=== PATIENT | female | born 1985 | race Caucasian/White ===

== ENCOUNTER 2020-07-08 07:38 | Inpatient (IN) ==
[2020-07-08] MEDS ORDERED: INSULIN REGULAR 250 UNITS in SODIUM CHLORIDE 0.9% 247.5 ML IV PRN (07:53)
[2020-07-08] MEDS ORDERED: LACTATED RINGER'S 1,000 ML IV PRN (07:53)
[2020-07-08] MEDS ORDERED: DEXTROSE 50% 50 ML SYRINGE IV PRN (07:53)
[2020-07-08] MEDS ORDERED: OXYTOCIN 30 UNITS/500 ML BAG IV PRN ×2 (07:53→20:51)
[2020-07-08] MEDS ORDERED: SODIUM CHLORIDE 0.9% 1000ML 1,000 ML IV PRN (07:53)
[2020-07-08] MEDS ORDERED: DINOPROSTONE 10 MG INSERT PV ONE (07:53)
[2020-07-08] MEDS ORDERED: DEXTROSE 5% 1,000 ML IV PRN (07:53)
--- NOTE | 2020-07-08 08:50 | History & Physical Report ---
Date of Service July 08, 2020 Assessment & Plan (1) Gestational diabetes mellitus (GDM) requiring insulin: 35-year-old -0-0-1 at 39 weeks of gestation with gestational diabetes on 32 units of insulin. Scheduled induction at term. Vital signs stable afebrile heart rate reassuring GBS negative Coronavirus testing negative Cervix unfavorable, discussed induction of labor with cervical ripening, Cervidil, Cytotec or oxytocin. Discussed ambulation during induction of labor After long discussion patient agrees with cervical ripening with Cervidil All questions were answered. (2) Elective induction of labor planned: Admission and Anticipated Discharge Date Admission Date: July 08, 2020 History of Present Illness Chief Complaint: Induction of labor Primary Care Provider: NO PCP Patient is a 35 yo at 39 wks who is was scheduled for IOL at term for GDMA2, on insulin. Patient has no complaints. She denies contractions, leakage of fluid, vaginal bleeding, fever chills, chest pain shortness of breath, headaches change in her vision, nausea or vomiting. She reports good movements. She has been on 32 units of long-acting insulin at night, started at 16 weeks at 10 units and increase throughout this . Her fingerstick was 74 mg/dL this morning. GBS is negative. Coronavirus testing is negative. Denies any other medical problems. Allergies Allergy/AdvReac Type Severity Reaction Status Date / Time Sulfa (Sulfonamide Allergy Unknown ? Verified 06/30/16 18:26 Antibiotics) Avelar Pepper Allergy Mild ANAPHYLAXIS Uncoded 06/30/16 18:26 Home Medications Medication Instructions Recorded Confirmed Type Docosahexaenoic Acid (Dha) #0 06/29/16 History Multivit/Min/Iron/Fol Ac/Pren 1 tab PO DAILY #0 tab 06/29/16 History ( Vitamin) Ibuprofen 600 mg PO Q4H PRN #30 tab 07/01/16 Rx Patient History Surgical History [place] teeth extracted Social History Smoking Status: Never smoker Hx Alcohol Use: No Hx Substance Use: No Preferred Language: [place]ralt[place] Beliefs That Will Affect Care: None marital status: Current Living Situation: Family Other Information That Helps Us Care for You: No Feels Safe at Home: Yes Safety Concerns: Feels Safe At This Time Assistive Devices: None OB History 2016, full-term spontaneous vaginal delivery of a 8 pound 6 ounce female , no complications. [employer] History Denies any history of STD, including herpes, chlamydia, gonorrhea. Review of Systems All systems reviewed & are unremarkable except as noted in HPI & below Physical Exam Constitutional: WD/WN, vitals as above well developed and well nourished Gastrointestinal (Abdomen): normal bowel sounds, soft, nontender, no hepatosplenomegaly (Gravid, Charan 8 pounds.) Genitourinary: normal external appearance OB Exam Abdomen: + vertex Manual OB Exam: + cervical dilation 2 cm, + cervical effacement 30% and + station high OB Exam Monitor Tracing: + category I Results & Data ([facility]) Vital Signs (Past 12 Hours) Vital Signs Temp Pulse Resp BP 07/08/20 07:51 37.1 C 109 H 20 110/73 07/08/20 07:46 109 H 110/73
[2020-07-08 09:21] LABS: Hematocrit (blood only) 40.9 % (37-47); Hemoglobin 13.9 g/dL (12.0-16.0); Mean Corpuscular Hemoglobin 31.5 pg (25-34); Mean Corpuscular Volume 92.7 fL (80-100); Mean Platelet Volume 11.4 fL (7.4-10.4); Platelet Count 132 K/uL (130-400); RDW Coefficient of Variation 13.8 % (11.5-14.5); RDW Standard Deviation 46.9 fL (36.4-46.3); Red Blood Count 4.41 M/uL (4.2-5.4); White Blood Count 7.02 K/uL (4.8-10.8)
[2020-07-08 09:42] LABS: Albumin Level 2.8 gm/dl (3.4-5.0); BUN Creatinine Ratio 13.7 (10-20); Calcium 8.9 mg/dl (8.5-10.1); Creatinine Clr Calc Pharmacy 121.2 ml/min; Est GFR (African American) 132.3; Est GFR (Non-African American) 114.1; Potassium 3.8 mmol/L (3.5-5.1)
[2020-07-08 09:44] LABS: Albumin Globulin Ratio 0.8 (0.9-2); Bilirubin,Total 0.6 mg/dl (0.2-1); Globulin 3.7 gm/dl (2.5-4.0); Total Protein 6.5 gm/dl (6.4-8.2)
--- NOTE | 2020-07-08 16:53 | Obstetrical Progress Note ---
Date of Service July 08, 2020 Assessment & Plan Admission and Anticipated Discharge Date Admission Date: July 08, 2020 Subjective Patient is reevaluated She has been feeling ctxs since around 11 am, not all of them Pain is 6/10, not bad for her to ask for pain meds No LOF/VB +FM's FHR categ I [place] ctxs q 2-5 min FS's have been WNL Discussed plan and possible scenarios depending on ctxs pattern and cervical change Remove cervidil at 9 pm Continue to monitor closely Results & Data ([facility]) Vital Signs (Past 12 Hours) Vital Signs Temp Pulse Resp BP 07/08/20 15:08 36.8 C 75 20 113/69 07/08/20 11:04 36.7 C 81 20 107/66 07/08/20 07:51 37.1 C 109 H 20 110/73 07/08/20 07:46 109 H 110/73
[2020-07-08] MEDS ORDERED: SODIUM CHLORIDE 0.9% INJ 10 ML VIAL ONE (18:22)
[2020-07-08] MEDS ORDERED: ePHEDrine sulfate 50 MG/ML AMP ONE (18:22)
[2020-07-08] MEDS ORDERED: BUPIVACAINE 0.25% 30 ML VIAL ONE (18:23)
[2020-07-08] MEDS ORDERED: fentaNYL 2MCG/ML ROPIVACAINE 1.25MG/ML 100 ML BAG EPI ONE (18:23)
--- NOTE | 2020-07-08 18:37 | Anesthesiology Consultation ---
Date of Service July 08, 2020 Assessment & Plan (1) Encounter for pre-operative examination: Chart Review Chart Review: Acceptable Risk for Labor Epidural Consults Requested none ASA ASA2 Proposed Anesthesia Anesthesia Type: Labor Epidural Risk / Benefits Reviewed With: PT / POA / Parent / Guardian, Accepts Plan and Informed Consent Obtained History Height/Weight Height: 5 ft 4 in Weight: 82.554 kg Allergies Allergy/AdvReac Type Severity Reaction Status Date / Time Sulfa (Sulfonamide Allergy Unknown ? Verified 07/08/20 09:01 Antibiotics) Avelar Pepper Allergy Mild ANAPHYLAXIS Uncoded 07/08/20 09:01 Medications Home Medications Medication Instructions Recorded Confirmed Last Taken prenat.vits,mei,gur-qigb-xidiq 1 tab PO DAILY 07/08/20 07/08/20 Unknown [ Vitamin] Active Medications Generic Name Dose Route Start Last Admin Trade Name Freq PRN Reason Stop Dose Admin Lactated Ringer's 1,000 mls @ 150 mls/hr 07/08/20 07:53 07/08/20 18:20 Lr IV 07/10/20 07:52 999 mls/hr .Q6H40M PRN Administration L&D Protocol Protocol Past Medical History Medical History (Updated 07/08/20 @ 18:37 by Devyn Saravia DO) Gestational diabetes mellitus (GDM) requiring insulin Exercise / Class Metabolic Activity II 4-5 Yardwork/Stairs/Walk up hill Past Surgical History Surgical History [place] teeth extracted Past Anesthesia History No Hx of Anesthesia Complications and No Family Hx of Anesthesia Complications History of PONV No Hx of PONV and No Hx of Motion Sickness Social History Smoking Status: Never smoker Hx Alcohol Use: No Hx Substance Use: No substance use type: does not use Physical Exam Vital Signs Last Vital Signs Temp 98.2 F 07/08/20 15:08 Pulse 75 07/08/20 15:08 Resp 20 07/08/20 15:08 BP 113/69 07/08/20 15:08 ENMT Mouth: no dentition abnormality Thyromental Distance: > or= 3.5 Finger Breadths Mallampati Class: II Neck normal visual inspection Respiratory normal respiratory effort Auscultation: lungs clear to auscultation bilaterally Cardiovascular Rate/Rhythm: regular rate and regular rhythm Testing Laboratory Results 07/08/20 09:11 07/08/20 09:11 07/08/20 07/08/20 07/08/20 18:16 17:17 17:00 POC Glucose 108 H 80 60 L* 07/08/20 07/08/20 07/08/20 16:01 12:05 08:45 POC Glucose 85 81 118 H
[2020-07-08] MEDS ORDERED: NALOXONE HCL 0.4 MG/1 ML VIAL/CARP IV PRN (18:38)
[2020-07-08] MEDS ORDERED: NALOXONE HCL 1 MG in SODIUM CHLORIDE 0.9% 1000ML 1,000 ML IV PRN (18:38)
[2020-07-08] MEDS ORDERED: ePHEDrine sulfate 50 MG/ML AMP IV PRN (18:38)
[2020-07-08] MEDS ORDERED: ONDANSETRON INJ 2 MG/ML 2 ML VIAL IV PRN (18:38)
[2020-07-08] MEDS ORDERED: diphenhydrAMINE 50 MG/ML VIAL IV PRN (18:38)
[2020-07-08] MEDS ORDERED: fentaNYL 2MCG/ML ROPIVACAINE 1.25MG/ML 100 ML BAG EPI PRN (18:38)
--- NOTE | 2020-07-08 18:46 | Obstetrical Progress Note ---
Date of Service July 08, 2020 Assessment & Plan Admission and Anticipated Discharge Date Admission Date: July 08, 2020 Subjective Patient is sitting up for epidural Pain got worse nd desired epidural VE per her nurse was 3/ 50%/ -3 FHR categ I Continue to monitor closely Results & Data ([facility]) Vital Signs (Past 12 Hours) Vital Signs Temp Pulse Resp BP Pulse Ox 07/08/20 18:40 89 100 07/08/20 18:37 76 116/66 07/08/20 18:35 85 98 07/08/20 15:08 36.8 C 75 20 113/69 07/08/20 11:04 36.7 C 81 20 107/66 07/08/20 07:51 37.1 C 109 H 20 110/73 07/08/20 07:46 109 H 110/73
[2020-07-08] MEDS: fentaNYL citrate 100 MCG/2 ML VIAL ONE ×2 (18:58→19:00)
--- NOTE | 2020-07-08 20:51 | Obstetrical Progress Note ---
Date of Service July 08, 2020 Assessment & Plan Admission and Anticipated Discharge Date Admission Date: July 08, 2020 Subjective Patient is reevaluated SROM'ed at 2030, clear fluid, Nitrazine+ VE; 4/ 60%/ -2, bulging forebag, AROM'ed, clear fluid, cervidil is removed FHR categ I [place] ctxs q2-3 min Continue to monitor Augment with Pitocin as needed Results & Data ([facility]) Vital Signs (Past 12 Hours) Vital Signs Temp Pulse Resp BP Pulse Ox 07/08/20 20:41 74 109/60 07/08/20 20:37 82 92 07/08/20 20:35 71 97 07/08/20 20:30 76 98 07/08/20 20:25 69 98/61 L 97 07/08/20 20:20 69 97 07/08/20 20:15 81 97 07/08/20 20:10 78 97/61 L 96 07/08/20 20:05 71 97 07/08/20 20:00 70 18 96 07/08/20 19:55 72 95/54 L 96 07/08/20 19:50 68 98 07/08/20 19:45 68 98 07/08/20 19:40 70 101/55 L 96 07/08/20 19:35 78 97 07/08/20 19:30 36.7 C 71 18 97 07/08/20 19:26 68 113/55 L 07/08/20 19:25 72 98 07/08/20 19:20 82 99 07/08/20 19:15 71 99 07/08/20 19:10 71 99 07/08/20 19:09 75 108/60 07/08/20 19:07 77 109/63 07/08/20 19:05 69 104/61 99 07/08/20 19:03 83 113/62 07/08/20 19:01 85 113/71 07/08/20 19:00 81 99 07/08/20 18:59 76 118/65 07/08/20 18:57 80 117/65 07/08/20 18:55 81 115/62 99 07/08/20 18:53 81 117/67 07/08/20 18:50 76 99 07/08/20 18:45 88 100 07/08/20 18:40 89 100 07/08/20 18:37 76 116/66 07/08/20 18:35 85 98 07/08/20 15:08 36.8 C 75 20 113/69 07/08/20 11:04 36.7 C 81 20 107/66
[2020-07-08] MEDS ORDERED: NURSING L&D Epidural Breakthrough Pain Update ONE (21:46)
[2020-07-08] MEDS ORDERED: fentaNYL citrate 100 MCG/2 ML VIAL ONE (22:10)
--- NOTE | 2020-07-08 22:31 | Anesthesiology Progress Note ---
Date of Service July 08, 2020 Assessment & Plan Admission and Anticipated Discharge Date Admission Date: July 08, 2020 Subjective Patient stated having increasing labor pains. Epidural was bolused with 50mcg of fentanyl and 3mL of 0.25% bupivacaine. Patient stated having improved labor pains. Physical Exam Vital Signs: Last Vital Signs Temp 98.2 F 07/08/20 20:45 Pulse 66 07/08/20 22:25 Resp 18 07/08/20 21:30 BP 101/57 L 07/08/20 22:19 Pulse Ox 97 07/08/20 22:25 Results & Data ([facility]) Medications Administered Lactated Ringer's (Lr) 1,000 mls @ 150 mls/hr IV .Q6H40M PRN; Protocol PRN Reason: L&D Protocol Stop: 07/10/20 07:52 Last Infusion: 07/08/20 19:01 Dose: 150 mls/hr Documented by: [id number] Admin: 07/08/20 18:20 Dose: 999 mls/hr Documented by: [id number] Ropivacaine (Fentanyl 2mcg/Ml Ropivacaine 1.25mg/Ml 100 Ml Bag) 100 ml EPI PRN PRN; Protocol PRN Reason: Pain R/T Labor Stop: 07/09/20 18:37 Last Admin: 07/08/20 21:43 Dose: 100 ml Documented by: [id number] Cosigned by: [id number]
--- NOTE | 2020-07-09 00:41 | Obstetrical Progress Note ---
Date of Service July 09, 2020 Assessment & Plan Admission and Anticipated Discharge Date Admission Date: July 08, 2020 Physical Exam Constitutional: WD/WN, vitals as above comfortable Results & Data ([facility]) Vital Signs (Past 12 Hours) Vital Signs Temp Pulse Resp BP Pulse Ox 07/09/20 00:35 79 119/70 07/09/20 00:25 118 H 96 07/09/20 00:21 101 H 94 07/09/20 00:20 75 100/57 L 94 07/09/20 00:16 71 94 07/09/20 00:15 76 94 07/09/20 00:10 78 95 07/09/20 00:07 81 110/58 L 94 07/09/20 00:05 71 92 07/09/20 00:01 73 93 07/09/20 00:00 74 94 07/08/20 23:55 84 93 07/08/20 23:51 89 94 07/08/20 23:50 75 97/56 L 92 07/08/20 23:45 70 93 07/08/20 23:40 79 95 07/08/20 23:38 71 94 07/08/20 23:35 73 94 07/08/20 23:34 66 97/55 L 07/08/20 23:33 70 94 07/08/20 23:30 36.8 C 71 18 93 07/08/20 23:27 71 94 07/08/20 23:25 76 93 07/08/20 23:21 75 94/55 L 07/08/20 23:20 72 95 07/08/20 23:15 64 93 07/08/20 23:12 66 94 07/08/20 23:10 65 94 07/08/20 23:05 73 94/55 L 94 07/08/20 23:00 67 94 07/08/20 22:59 66 94 07/08/20 22:55 66 95 07/08/20 22:51 71 99/56 L 07/08/20 22:50 72 96 07/08/20 22:46 67 94 07/08/20 22:45 73 94 07/08/20 22:40 65 96 07/08/20 22:36 58 L 97/59 L 07/08/20 22:35 60 96 07/08/20 22:30 64 97 07/08/20 22:25 66 97 07/08/20 22:20 66 99 07/08/20 22:19 71 101/57 L 07/08/20 22:15 77 97/55 L 100 07/08/20 22:11 69 99/55 L 07/08/20 22:10 75 100 07/08/20 22:05 65 100 07/08/20 22:00 71 98 07/08/20 21:56 75 100/62 07/08/20 21:55 70 100 07/08/20 21:53 79 88 L 07/08/20 21:50 104 H 99 07/08/20 21:45 69 100 07/08/20 21:40 73 101/53 L 100 07/08/20 21:35 86 100 07/08/20 21:30 84 18 100 07/08/20 21:25 78 99/58 L 99 07/08/20 21:20 70 100 07/08/20 21:15 76 99 07/08/20 21:13 83 104/58 L 07/08/20 21:10 82 99 07/08/20 21:05 78 100 07/08/20 21:00 76 18 99 07/08/20 20:55 74 104/59 L 99 07/08/20 20:50 77 99 07/08/20 20:45 36.8 C 07/08/20 20:41 74 109/60 07/08/20 20:37 82 92 07/08/20 20:35 71 97 07/08/20 20:30 76 98 07/08/20 20:25 69 98/61 L 97 07/08/20 20:20 69 97 07/08/20 20:15 81 97 07/08/20 20:10 78 97/61 L 96 07/08/20 20:05 71 97 07/08/20 20:00 70 18 96 07/08/20 19:55 72 95/54 L 96 07/08/20 19:50 68 98 07/08/20 19:45 68 98 07/08/20 19:40 70 101/55 L 96 07/08/20 19:35 78 97 07/08/20 19:30 36.7 C 71 18 97 07/08/20 19:26 68 113/55 L 07/08/20 19:25 72 98 07/08/20 19:20 82 99 07/08/20 19:15 71 99 07/08/20 19:10 71 99 07/08/20 19:09 75 108/60 07/08/20 19:07 77 109/63 07/08/20 19:05 69 104/61 99 07/08/20 19:03 83 113/62 07/08/20 19:01 85 113/71 07/08/20 19:00 81 99 07/08/20 18:59 76 118/65 07/08/20 18:57 80 117/65 07/08/20 18:55 81 115/62 99 07/08/20 18:53 81 117/67 07/08/20 18:50 76 99 07/08/20 18:45 88 100 07/08/20 18:40 89 100 07/08/20 18:37 76 116/66 07/08/20 18:35 85 98 07/08/20 15:08 36.8 C 75 20 113/69
--- NOTE | 2020-07-09 00:45 | Delivery Summary ---
Vaginal Delivery Summary Date of Service July 09, 2020 Vaginal Delivery Summary Delivery Note i was called out of a to deliver a patient who was being induced for GDM who precipitated and delivered by nurse while I entered the room. live male with Apgars 7/9 weight pending. Cord blood obtained followed by spontaneous delivery of intact placenta. Small right tammie-urethral tear repaired with 4/0 Vicryl suture, EBL 300 ml. Final sponge needle and instrument count are correct. Mom and baby stable.
[2020-07-09] MEDS ORDERED: DIPHTHERIA/TETANUS/PERTUSSIS 0.5 ML SYR/VIAL IM ONE (00:48)
[2020-07-09] MEDS ORDERED: HYDROCORTISONE ACETATE 25 MG SUPP PR PRN (00:48)
[2020-07-09] MEDS ORDERED: SUPERCREAM 0.870% 15 GM JAR EXT PRN (00:48)
[2020-07-09] MEDS ORDERED: OXYTOCIN 30 UNITS/500 ML BAG IV PRN (00:48)
[2020-07-09] MEDS ORDERED: bisacodyL 10 MG SUPP PR PRN (00:48)
--- NOTE | 2020-07-09 00:55 | Anesthesia Procedure Note ---
Date of Service July 09, 2020 Anesthesia Post Epidural Note Vital Signs Vital Signs: Temp Pulse Resp BP Pulse Ox 98.2 F 79 18 119/70 96 07/08/20 23:30 07/09/20 00:35 07/08/20 23:30 07/09/20 00:35 07/09/20 00:25 Pain Intensity Right Lower Abdomen: Pain Intensity: 6 Notes Mental Status: alert / awake / arousable and participated in evaluation Nausea / Vomiting: adequately controlled Pain: adequately controlled Airway Patency, RR, SpO2: stable & adequate BP & HR: stable & adequate Hydration State: stable & adequate Neuraxial Anesthesia: was administered and sensory block is resolving Anesthetic Complications: no major complications apparent and Pt Satisfied with anesthetic care Epidural: Removed without complications and With tip intact
[2020-07-09] MEDS: IBUPROFEN 600 MG TAB PO PRN ×5 (03:43→21:28)
[2020-07-09] MEDS: BENZOCAINE 20% AER SPR 82.5 GM CAN EXT PRN (03:44)
[2020-07-09] MEDS: ACETAMINOPHEN 325 MG TAB PO PRN ×2 (05:42→10:23)
[2020-07-09] MEDS: DOCUSATE SODIUM 100 MG CAP PO SCH ×2 (08:26→20:12)
[2020-07-09] MEDS: PRENATAL VITAMIN 1 TAB PO SCH (08:26)
[2020-07-09] MEDS ORDERED: NON-FORMULARY MEDICATION (Prenat.Vits,Cal,Min-Iron-Folic Tablet) PO SCH (09:00)
[2020-07-10] MEDS: IBUPROFEN 600 MG TAB PO PRN (05:31)
[2020-07-10 07:12] LABS: Hemoglobin 13.3 g/dL (12.0-16.0); Mean Corpuscular Hemoglobin 31.1 pg (25-34); Mean Corpuscular Volume 93.7 fL (80-100); Red Blood Count 4.27 M/uL (4.2-5.4); White Blood Count 9.61 K/uL (4.8-10.8)
[2020-07-10 07:13] LABS: Mean Corpuscular Hgb Conc 33.3 g/dL (32-36); Mean Platelet Volume 11.4 fL (7.4-10.4); Platelet Count 164 K/uL (130-400); RDW Coefficient of Variation 14.1 % (11.5-14.5); RDW Standard Deviation 47.7 fL (36.4-46.3)
[2020-07-10] MEDS: DOCUSATE SODIUM 100 MG CAP PO SCH (08:14)
[2020-07-10] MEDS: PRENATAL VITAMIN 1 TAB PO SCH (08:14)
[2020-07-10] MEDS: BENZOCAINE 20% AER SPR 82.5 GM CAN EXT PRN (08:15)
--- NOTE | 2020-07-10 10:30 | Obstetrical Progress Note ---
Date of Service July 10, 2020 Assessment & Plan (1) Normal course: PPD #1 pt doing well pt wishes to be discharged home d/c home with instruction this PM Subjective Ambulation: ambulating normally Voiding: no voiding problems Passing Gas:: Yes Diet Tolerance:: regular diet Lochia:: Small Feeding Type:: breast feeding Review of Systems All systems reviewed & are unremarkable except as noted in HPI & below Physical Exam Constitutional WD/WN, vitals as above well developed and well nourished Eyes PERRL, conjunctivae normal, anicteric sclerae Neck trachea midline, no thyromegaly Respiratory normal respiratory effort, lungs clear to auscultation Auscultation: no crackles, no rales and no wheezes Cardiovascular RRR, no murmur, no edema Gastrointestinal (Abdomen) normal bowel sounds, soft, nontender, no hepatosplenomegaly Uterus is below umbilicus Musculoskeletal no cyanosis or clubbing, extremities motor strength 5/5 Skin no rashes, warm and dry Neurologic patellar DTR's 2+ bilat, sensation intact Psychiatric A+Ox3, euthymic affect Genitourinary normal external appearance Results & Data ([facility]) Vital Signs (Past 12 Hours) Vital Signs Temp Pulse Resp BP Pulse Ox 07/10/20 07:23 37.1 C 65 16 106/67 07/09/20 23:00 36.7 C 66 16 100/56 L 97
[2020-07-10] MEDS ORDERED: bisacodyL 5 MG TABEC PO SCH (20:00)
== END 2020-07-10 11:56 | disposition home or self-care (01) | DRG 807 ==
LOC: 4S1 07:38 → 4S2 07-09 04:00